=== PATIENT | male | born 1985 | race Caucasian/White ===

== ENCOUNTER 2024-03-05 20:25 | Emergency (ER) | payer MEDICAID ==
[~2024-03-05] VITALS: Ht 175.3 cm; Wt 104.3 kg
[2024-03-05] MEDS ORDERED: BENZONATATE 100 MG CAPSULE PO ONE (22:40)
[2024-03-05] MEDS ORDERED: KETOROLAC TROMETHAMINE INJ 30 MG/ML VIAL ONE (22:40)
[2024-03-05] MEDS: ACETAMINOPHEN 325 MG TABLET PO ONE (22:41)
[2024-03-05] MEDS ORDERED: ACETAMINOPHEN 325 MG TABLET ONE (22:41)
[2024-03-05] MEDS: KETOROLAC TROMETHAMINE INJ 30 MG/ML VIAL IM ONE (22:41)
[2024-03-05] MEDS: BENZONATATE 100 MG CAPSULE PO PRN (22:41)
[2024-03-05 23:29] LABS: BASOPHILS # (AUTO) 0.1 K/uL (0.0-0.2); BASOPHILS % (AUTO) 0.9 % (0.0-2.0); EOSINOPHILS # (AUTO) 0.1 K/uL (0.0-0.7); EOSINOPHILS % (AUTO) 1.9 % (0.0-6.0); HEMATOCRIT 50 % (39-51); HEMOGLOBIN 17.1 g/dL (13.5-17.5); LYMPHOCYTES % (AUTO) 32.9 % (20.0-44.0); MEAN CORPUSCULAR HEMOGLOBIN 30 PG (26.0-33.0); MEAN CORPUSCULAR HGB CONC 35 g/dl (31.0-36.0); MEAN CORPUSCULAR VOLUME 86 fL (80-96); MONOCYTES # (AUTO) 0.4 K/uL (0.1-1.30); MONOCYTES % (AUTO) 7.4 % (2.0-12.0); NEUTROPHILS # (AUTO) 3.4 K/uL (1.8-8.9); NEUTROPHILS % (AUTO) 56.9 % (43.0-81.0); PLATELET COUNT (AUTO) 224 K/uL (150-450); RED BLOOD CELL COUNT(AUTO) 5.79 MIL/uL (4.5-6.0); RED CELL DISTRIBUTION WIDTH 13.3 % (11.5-15.0)
[2024-03-05 23:42] LABS: CALCIUM, SERUM 9.2 mg/dL (8.5-10.1); CREATININE 0.6 mg/dL (0.6-1.3); POTASSIUM 3.9 mmol/L (3.5-5.1)
[2024-03-05 23:55] LABS: ALBUMIN 3.7 g/dL (3.4-5.0); BILIRUBIN,TOTAL 0.9 mg/dL (0.2-1.0); TOTAL PROTEIN, SERUM 7.5 g/dL (6.4-8.2)
[2024-03-05] MEDS ORDERED: BENZ-13 PO (23:59)
[2024-03-05] MEDS ORDERED: GUAI1TBM19 PO (23:59)
[2024-03-05] MEDS ORDERED: BENZ1LOZ58 PO (23:59)
[2024-03-06 00:05] VITALS: BP 133/82; TEMP 98.9; O2SAT 98
[2024-03-06] MEDS ORDERED: BENZ-13 PO (00:38)
== END 2024-03-06 00:06 | disposition home or self-care (01) ==
LOC: ER 20:40
DX: J06.9 Acute upper respiratory infection, unspecified (principal); R73.9 Hyperglycemia, unspecified; F17.200 Nicotine dependence, unspecified, uncomplicated; B97.89 Other viral agents as the cause of diseases classified elsewhere; Z20.822 Contact with and (suspected) exposure to COVID-19
CPT/HCPCS: 99284; 71045; 87426; 96372; 87804 ×2; 85025; 85378; 36415; 80053; 83880; J1885